=== PATIENT | male | born 1985 | race Caucasian/White ===

== ENCOUNTER 2024-04-21 09:02 | Outpatient (AMB) | payer MEDICAID, SELFPAY ==
[2024-04-21 09:35] VITALS: BP 121/76; PULSE 73; RESP 18; TEMP 36.4; O2SAT 95; BMI 25.9
--- NOTE | 2024-04-21 09:35 | PD.ORTHCLVIS ---
Vital signs 04/21/24 09:35 Height 1.78 m Height Method Stated Weight 81.873 kg Weight Measurement Method Standing Scale BMI 25.9 BP 121/76 Blood Pressure Source Automatic Cuff Blood Pressure Location Right Upper Arm Position Sitting Respiration 18 Pulse 73 Pulse Source Monitor Temp 97.5 F Temp Source Temporal Artery Scan Pulse Oximetry (%) 95 Oxygen Delivery Method Room Air Med/Allergies Allergies & Medications Allergies No Known Drug Allergies Allergy (Verified 04/21/24 09:36) Medication Reconciliation No Known Home Medications 04/21/24 [History Confirmed 04/21/24] Exam Exam Patient is in no acute distress and is cooperative with the examination today. Breathing is nonlabored. Patient has a normal mood and affect. The patient has a gait that is nonantalgic Bilateral extremities were evaluated and demonstrates sensation intact to light touch. Palpable pedal pulses are present. No significant edema is present. Bilateral hips were examined. The patient has no pain with log roll of the hips. Internal rotation to 30 degrees and external rotation to 30 degrees is painless. Negative FADIR. Left knee was examined today. The left knee is in reasonable alignment. Range of motion from 0-120 degrees. Knee is stable to varus and valgus as well as AP translation with <5mm. Patient has a negative McMurrays. There is no pain with patellofemoral compression and no crepitus noted. The knee is nontender to palpation. The right knee was also examined. The right knee is in neutral alignment. Range of motion from 0-120 degrees. Patient has a negative McMurrays. There is no pain with patellofemoral compression and no crepitus noted. The knee is nontender to palpation diffusely. The patient has a positive anterior drawer and Danae's Assessment and Plan Problem List (1) ACL tear: Status: Acute Plan: Patient is a 38-year-old male with a noncontact injury 2 months ago. The swelling has went down. Complex is still does not trust his knee and feels unstable. I suspect he does have an ACL tear. We will get an MRI. We will see him back after the MRI is done. Office Procedures GNS Level of Care Nursing/Assessment Patient Status: Initial/New Patient Nursing Assessment/Reassesment: Medication Reconciliation, Update PMH in EMR and Vital Signs Coordination of Care: Complex Care and Chronic Disease 1-5, Education Complex Pt/Fam, Consent,records obtained, informed consent, 1 Ins Authorization, Results/Orders obtained and Staff clarify orders New Patient Charge New Patient Point Assignment: 1109 New Patient Point Charge: LEAD TECHNICAL WRITER Level 3 ([id number]) MA Intake Visit Data Collection New Patient or Established: New Patient not seen in past 3 years at [facility] (considered New) Reason for Visit:: RIGHT KNEE PAIN Seen by Clinical Staff ONLY (RN/MA): No Verbal consent obtained for Telemed visit?: No Wire Setter Required: No PCP or OBGYN visit in last 3 months: Yes Hx Now: No Do You Feel Safe at Home: Yes Authorities Contacted: N/A Questionairres Past Medical History Past Medical History Have you ever been diagnosed with any of the following: Respiratory Problems Smoking: No Smoking Cessation Counseling: No Smoking Exposure: No Subjective Visit Visit for: new patient and knee Immunization / Flu Flu Vaccine in the Last 12 Months: No Flu Vaccine Exclusion Criteria: No Exclusion Criteria History of Present Illness Chief complaint: RIGHT KNEE PAIN Date of injury / onset of symptoms: 01/2024 Edgardo is a 38-year-old male with a noncontact injury 2 months ago. He was playing basketball and felt like his knee gave out. His knee did swell up initially. The swelling is 1 down and he reports that the knee feels unstable and he does have a limp still. He can walk on flat ground and has little difficulty walking. He has difficulty changing directions Personal History Red flag PMH: none Pain Pain level (0-10): 2 Pain duration: COMES AND GOES Pain location: inside (medial) and outside (lateral) Pain quality: aching and other (specify) (SORENESS) Pain timing: increases with activity Ambulatory data Ambulatory device: none Treatments Improvement with previous injections: No Improvement with PT: No Improvement with NSAIDS: no Review of Systems Review of Systems: All systems negative unless otherwise noted in HPI.
== END 2024-04-21 10:02 | disposition home or self-care (01) ==
PROVIDERS: Supervising Provider Orthopaedic Surgery Adult Reconstructive Orthopaedic Surgery; Visit Provider Orthopaedic Surgery Adult Reconstructive Orthopaedic Surgery
DX: S83.519D Sprain of anterior cruciate ligament of unspecified knee, subsequent encounter (principal); X58.XXXD Exposure to other specified factors, subsequent encounter
CPT/HCPCS: 99203; G0463

== ENCOUNTER → 2024-05-09 | Outpatient (CLI) | payer MEDICAID, SELFPAY ==
--- NOTE | 2024-05-09 07:30 | XR_ITS ---
Exam: MRI knee without contrast, right Date and time of exam: May 09, 2024 0720 hrs. Indications: Lateral right knee pain stiffness post basketball injury 3 months ago Technique: Multiple axial, coronal, and sagittal sections on the knee have been obtained. T2-Weighted sagittal, fat-suppressed images, TR 3,500, TE 62, T2 weighted coronal fat-saturated images, TR 3,500, TE 62 Proton density sagittal sections, TR 1800, TE 31. T-1 weighted coronal images, TR 524, TE 13.0 Findings: Medial meniscus anterior horn intact. Medial meniscus, body is intact. Posterior horn medial meniscus vertical tear outer one half posterior horn. Lateral meniscus anterior horn is intact Lateral meniscus, body is intact Posterior horn lateral meniscus is intact Anterior cruciate ligament moderate sprain Posterior cruciate ligament appears intact. Knee effusion is small. Quadriceps and patellar tendons appear intact. There is no evidence of tendinosis. Inflammatory change or fracture of Hoffa's fat pad is not seen. Medial patellar facet demonstrates no thinning. Lateral patellar facet cartilage demonstrates no thinning. Trochlear cartilage demonstrates no thinning. Marrow signal adequate. Medial collateral ligament appears intact. No meniscocapsular separation is seen. Illiotibial band and fibular collateral ligament are intact. Biceps femoris tendons appear intact. Medial femoral condylar articular cartilage demonstrates mild thinning. Lateral femoral condylar articular cartilage mild thinning Tibial plateau cartilage demonstrates mild thinning. Impression: Vertical tear posterior horn medial meniscus Moderate sprain anterior cruciate ligament
== END | disposition home or self-care (01) ==
LOC: SMRI 07:02
PROVIDERS: Referring Provider Orthopaedic Surgery Adult Reconstructive Orthopaedic Surgery; Visit Provider Orthopaedic Surgery Adult Reconstructive Orthopaedic Surgery
DX: S83.241A Other tear of medial meniscus, current injury, right knee, initial encounter (principal); S83.511A Sprain of anterior cruciate ligament of right knee, initial encounter; X58.XXXA Exposure to other specified factors, initial encounter
CPT/HCPCS: 73721

== ENCOUNTER 2024-05-12 14:04 | Outpatient (AMB) | payer MEDICAID, SELFPAY ==
--- NOTE | 2024-05-12 14:28 | ORTHONT_ITS ---
Vital signs 05/12/24 14:35 Height 1.78 m Height Method Stated Weight 82.185 kg Weight Measurement Method Standing Scale BMI 25.9 BP 131/87 H Blood Pressure Source Automatic Cuff Blood Pressure Location Left Upper Arm Position Sitting Respiration 18 Pulse 81 Pulse Source Monitor Temp 98.5 F Temp Source Temporal Artery Scan Pulse Oximetry (%) 98 Oxygen Delivery Method Room Air Med/Allergies Allergies & Medications Allergies No Known Drug Allergies Allergy (Verified 05/12/24 14:35) Medication Reconciliation meloxicam 7.5 mg tablet 7.5 mg PO QDAY #45 tabs 05/12/24 [Rx] Exam Exam Patient is in no acute distress and is cooperative with the examination today. Breathing is nonlabored. Patient has a normal mood and affect. The patient has a gait that is nonantalgic Bilateral extremities were evaluated and demonstrates sensation intact to light touch. Palpable pedal pulses are present. No significant edema is present. Bilateral hips were examined. The patient has no pain with log roll of the hips. Internal rotation to 30 degrees and external rotation to 30 degrees is painless. Negative FADIR. Left knee was examined today. The left knee is in reasonable alignment. Range of motion from 0-120 degrees. Knee is stable to varus and valgus as well as AP translation with <5mm. Patient has a negative McMurrays. There is no pain with patellofemoral compression and no crepitus noted. The knee is nontender to palpation. The right knee was also examined. The right knee is in neutral alignment. Range of motion from 0-120 degrees. Patient has a negative McMurrays. There is no pain with patellofemoral compression and no crepitus noted. The knee is nontender to palpation diffusely. The patient has a positive anterior drawer and Danae's Assessment and Plan Problem List (1) ACL tear: Status: Acute Plan: Patient is a 38-year-old male with a noncontact injury 2 months ago. The swelling has went down. He still has a limp and was found to have a posterior h orn of the medial meniscus tear. Interestingly his pain is actually anterior and laterally. We will thus start with conservative treatment. He does not have an ACL tear or any bone bruises on the MRI. We discussed that we could try operative treatment should nonoperative treatment fail. He already has a brace and we will start him on anti-inflammatories (2) Tear of meniscus of knee: Status: Acute Office Procedures GNS Level of Care Nursing/Assessment Patient Status: Established Patient Nursing Assessment/Reassesment: Medication Reconciliation, Update PMH in EMR and Vital Signs Coordination of Care: Complex Care and Chronic Disease 1-5, Education Complex Pt/Fam, Consent,records obtained, informed consent, Results/Orders obtained and Staff clarify orders Established Patient Charge Established Patient Point Assignment: 95 Established Patient Point Charge: EP Level 3 (80-115) MA Intake Visit Data Collection New Patient or Established: Established Patient (seen at [facility] within 3 years) Reason for Visit:: MRI RESULTS Seen by Clinical Staff ONLY (RN/MA): No Assistant Professor Of Business Required: No PCP or OBGYN visit in last 3 months: Yes Hx Now: No Do You Feel Safe at Home: Yes Authorities Contacted: N/A Questionairres Past Medical History Past Medical History Have you ever been diagnosed with any of the following: Respiratory Problems Smoking: No Smoking Cessation Counseling: No Smoking Exposure: No Subjective Visit Visit for: follow up visit and MRI Immunization / Flu Flu Vaccine in the Last 12 Months: No Flu Vaccine Exclusion Criteria: No Exclusion Criteria History of Present Illness Chief complaint: Right knee pain Date of injury / onset of symptoms: 01/2024 Edgardo is a 38-year-old male with a noncontact injury 2 months ago. He was playing basketball and felt like his knee gave out. His knee did swell up initially. The swelling is 1 down and he reports that the knee feels unstable and he does have a limp still. He can walk on flat ground and has little difficulty walking. He has difficulty changing directions. The pain is anteriorly and laterally Personal History Red flag PMH: none Pain Pain level (0-10): 2 Pain duration: ON AND OFF Pain location: inside (medial) Pain quality: aching and other (specify) (SORENESS) Pain timing: increases with activity Associated signs & symptoms: none Ambulatory data Ambulatory device: none Treatments Improvement with previous injections: No Improvement with PT: No Improvement with NSAIDS: no Review of Systems Review of Systems: All systems negative unless otherwise noted in HPI.
[2024-05-12 14:35] VITALS: BP 131/87; PULSE 81; RESP 18; TEMP 36.9; O2SAT 98; BMI 25.9
== END 2024-05-12 14:42 | disposition home or self-care (01) ==
PROVIDERS: Supervising Provider Orthopaedic Surgery Adult Reconstructive Orthopaedic Surgery; Visit Provider Orthopaedic Surgery Adult Reconstructive Orthopaedic Surgery
DX: S83.249D Other tear of medial meniscus, current injury, unspecified knee, subsequent encounter (principal); X58.XXXD Exposure to other specified factors, subsequent encounter
CPT/HCPCS: 99213; G0463

== ENCOUNTER 2024-06-18 15:00 | Outpatient (RCR) | payer MEDICAID, SELFPAY ==
--- NOTE | 2024-06-05 14:30 | PT.OIERPT ---
PT OP Initial Eval Patient Information Outpatient Physical Therapy Treatment Date: 06/05/24 Visit Reasons: right knee pain Medical Diagnosis: Right Knee Meniscus Tear Treatment Dx #1: Right Knee Pain Treatment Dx #2: Right Knee Mobility Deficits Start of Care: 06/05/24 Date of Onset: Jan 2024 Smoking Status Smoking Status: Never smoker Initial Assessment Subjective: Pt is a 38 y/o male reports of right knee pain (09/01) after basketball injury Jan 2024. Pt has popping and clicking with the knee with certain ADLs. Pt has limitation with standing, walking, chores, self care, work duties, squatting, kneeling, and recreational activities. Objective: Right Knee AROM: -10 deg to 130 deg Right Knee MMTs: grossly 4/5 Right Hip MMTs: grossly 3+/5 Active SLR: 70 deg Special Test (+) Makayla Palpation: TTP medial knee joint line Assessment: Pt demonstrate right knee mobility and strength deficits s/p injury leading to difficulty with ADLs. 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
--- NOTE | 2024-06-16 13:57 | PT.ODAYNRPT ---
PT Outpatient Daily Note OP Daily Note Outpatient Physical Therapy Treatment Date: 06/16/24 Visit Reasons: right knee pain Subjective: Pt's knee feels tight and still has pain. Objective: Please see flow chart for list of ther ex performed Assessment: improve gait post PT session with more knee extension in stance with less antalgic gait noted Plan: Continue with PT Length of Time (minutes) of Treatment: 30 Minutes Procedure Charges Therapeutic Exercise 30 minutes: Yes
--- NOTE | 2024-06-18 15:36 | PT.ODAYNRPT ---
PT Outpatient Daily Note OP Daily Note Outpatient Physical Therapy Treatment Date: 06/18/24 Visit Reasons: right knee pain Subjective: No soreness or complaints to report after last session. Objective: Please see flow sheet for ther ex list. Assessment: Added TG squat exercise, pt completed with minimal knee discomfort but able to complete assigned reps. Plan: Continue with pOC. Length of Time (minutes) of Treatment: 30 Minutes Procedure Charges Therapeutic Exercise 30 minutes: Yes
== END 2024-06-22 23:59 | disposition home or self-care (01) ==
LOC: CPTX 15:00
PROVIDERS: PCP Orthopaedic Surgery Adult Reconstructive Orthopaedic Surgery; Referring Provider Orthopaedic Surgery Adult Reconstructive Orthopaedic Surgery; Visit Provider Orthopaedic Surgery Adult Reconstructive Orthopaedic Surgery
DX: M25.561 Pain in right knee (principal); R26.2 Difficulty in walking, not elsewhere classified; S83.206D Unspecified tear of unspecified meniscus, current injury, right knee, subsequent encounter; X58.XXXD Exposure to other specified factors, subsequent encounter
CPT/HCPCS: 97110; 97162

== ENCOUNTER 2024-06-30 14:21 | Outpatient (AMB) | payer MEDICAID, SELFPAY ==
[2024-06-30 14:42] VITALS: BP 137/89; PULSE 75; RESP 19; TEMP 36.7; O2SAT 97; BMI 25.7
--- NOTE | 2024-06-30 14:42 | PD.ORTHCLVIS ---
Vital signs 06/30/24 14:42 Height 1.78 m Height Method Stated Weight 81.675 kg Weight Measurement Method Standing Scale BMI 25.7 BP 137/89 H Blood Pressure Source Automatic Cuff Blood Pressure Location Left Upper Arm Position Sitting Respiration 19 Pulse 75 Pulse Source Monitor Temp 98.1 F Temp Source Temporal Artery Scan Pulse Oximetry (%) 97 Oxygen Delivery Method Room Air Med/Allergies Allergies & Medications Allergies No Known Drug Allergies Allergy (Verified 06/30/24 14:43) Exam Exam Patient is in no acute distress and is cooperative with the examination today. Breathing is nonlabored. Patient has a normal mood and affect. The patient has a gait that is nonantalgic Bilateral extremities were evaluated and demonstrates sensation intact to light touch. Palpable pedal pulses are present. No significant edema is present. Bilateral hips were examined. The patient has no pain with log roll of the hips. Internal rotation to 30 degrees and external rotation to 30 degrees is painless. Negative FADIR. Left knee was examined today. The left knee is in reasonable alignment. Range of motion from 0-120 degrees. Knee is stable to varus and valgus as well as AP translation with <5mm. Patient has a negative McMurrays. There is no pain with patellofemoral compression and no crepitus noted. The knee is nontender to palpation. The right knee was also examined. The right knee is in neutral alignment. Range of motion from 0-120 degrees. Patient has a negative McMurrays. There is no pain with patellofemoral compression and no crepitus noted. The knee is nontender to palpation diffusely. The patient has a positive anterior drawer and Danae's Patient has an MRI that demonstrates a posterior horn medial meniscus tear Assessment and Plan Problem List (1) ACL tear: Status: Acute Plan: Patient is a 38-year-old male with a noncontact injury 4 months ago. The swelling has went down. We treated him nonoperatively and had him do physical therapy. The pain has improved quite a bit but it is nowhere near perfect at this point. I discussed with him that the MRI findings demonstrate a posterior horn medial meniscus tear and that his pain is actually only anteriorly. I discussed that given the location of the pain it is not concordant with the MRI findings and his exam does not seem like the meniscus is bothering him. I thus would recommend conservative treatment. I discussed with the patient that should he want a second opinion that I think this is completely reasonable. I recommend referral for second opinion with another orthopedic surgeon especially since I primarily specialize in hip and knee replacements and arthritis (2) Tear of meniscus of knee: Status: Acute Office Procedures GNS Level of Care Nursing/Assessment Patient Status: Established Patient Nursing Assessment/Reassesment: Medication Reconciliation, Update PMH in EMR and Vital Signs Coordination of Care: Complex Care/Chronic Disease 5 or more, Education Complex Pt/Fam, Consent,records obtained, informed consent, Results/Orders obtained and Staff clarify orders Established Patient Charge Established Patient Point Assignment: 105 Established Patient Point Charge: EP Level 3 (80-115) UT Intake Visit Data Collection New Patient or Established: Established Patient (seen at [facility] within 3 years) Reason for Visit:: FOLLOW UP RIGHT KNEE PAIN Do You Feel Safe at Home: Yes Questionairres Past Medical History Past Medical History Have you ever been diagnosed with any of the following: Respiratory Problems Smoking: No Smoking Cessation Counseling: No Smoking Exposure: No Subjective Visit Visit for: follow up visit and knee Immunization / Flu Flu Vaccine in the Last 12 Months: No Flu Vaccine Exclusion Criteria: No Exclusion Criteria History of Present Illness Chief complaint: FOLLOW UP RIGHT KNEE PAIN Date of injury / onset of symptoms: 01/2024 Edgardo is a 38-year-old male with a noncontact injury 2 months ago. He was playing basketball and felt like his knee gave out. His knee did swell up initially. The swelling is 1 down and he reports that the knee feels unstable and he does have a limp still. He can walk on flat ground and has little difficulty walking. He has difficulty changing directions. The pain is anteriorly and laterally Personal History Red flag PMH: none BMI Counceling provided: Yes Pain Pain level (0-10): 2 Pain duration: CONSTANT Pain location: inside (medial) Pain quality: aching and other (specify) (SORENESS) Pain timing: increases with activity Associated signs & symptoms: none Ambulatory data Ambulatory device: none Treatments Improvement with previous injections: No Improvement with PT: Yes Improvement with NSAIDS: no Review of Systems Review of Systems: All systems negative unless otherwise noted in HPI.
== END 2024-06-30 14:53 | disposition home or self-care (01) ==
LOC: HODSRG 14:21
PROVIDERS: Supervising Provider Orthopaedic Surgery Adult Reconstructive Orthopaedic Surgery; Visit Provider Orthopaedic Surgery Adult Reconstructive Orthopaedic Surgery
DX: S83.249D Other tear of medial meniscus, current injury, unspecified knee, subsequent encounter (principal); X58.XXXD Exposure to other specified factors, subsequent encounter
CPT/HCPCS: 99213; G0463

== ENCOUNTER 2024-07-22 09:00 | Outpatient (RCR) | payer MEDICAID, SELFPAY ==
--- NOTE | 2024-06-24 09:15 | PT.ODAYNRPT ---
PT Outpatient Daily Note OP Daily Note Outpatient Physical Therapy Treatment Date: 06/24/24 Visit Reasons: RIGHT KNEE PAIN Subjective: Pt reports no changes, continues to have tightness/stiffness of R knee. Objective: Please see flow sheet for ther ex list. Assessment: Added light strengthening interventions pt completed with some discomfort but able to complete assigned reps. Plan: Assess response to treatment. Length of Time (minutes) of Treatment: 30 Minutes Procedure Charges Therapeutic Exercise 30 minutes: Yes
--- NOTE | 2024-06-26 15:10 | PT.ODAYNRPT ---
PT Outpatient Daily Note OP Daily Note Outpatient Physical Therapy Treatment Date: 06/26/24 Visit Reasons: RIGHT KNEE PAIN Subjective: Pt's knee is better, however, feels sore in the hip after therapy session. Pt mentioned his Hamstrings continues to be tight Objective: Please see flow chart for list of ther ex performed Assessment: patient exhibit tight Hs leading to decrease terminal knee extension in gait which translate to a antalgic gait. Pt instructed to stretch Hs more as HEP at home to improve muscle length and increase knee extension ROM Plan: Continue with PT Length of Time (minutes) of Treatment: 30 Minutes Procedure Charges Therapeutic Exercise 30 minutes: Yes
--- NOTE | 2024-07-01 14:18 | PT.ODAYNRPT ---
PT Outpatient Daily Note OP Daily Note Outpatient Physical Therapy Treatment Date: 07/01/24 Visit Reasons: RIGHT KNEE PAIN Subjective: Pt reports he still continues to have pain and difficulty straightening out the R knee. Pt had a follow up with Dr. Mane, pt will be referred for a second opinion. Objective: Please see flow sheet for ther ex list. Assessment: Pt continues to ambulate with poor knee extension during heel strike, pt has pain with attempting to fully extend knee. Plan: Continue with POC. Length of Time (minutes) of Treatment: 30 Minutes Procedure Charges Therapeutic Exercise 30 minutes: Yes
--- NOTE | 2024-07-08 09:36 | PT.ODAYNRPT ---
PT Outpatient Daily Note OP Daily Note Outpatient Physical Therapy Treatment Date: 07/08/24 Visit Reasons: RIGHT KNEE PAIN Subjective: Pt's knee feels okay and still notice some ache in the knee with standing and walking. Pt seen Dr Mane and recommends for him to return back to PCP for sport ortho consult. Pt will like to finish authorized PT session since it's helping with overall knee mobility Objective: Please see flow chart for list of ther ex performed Assessment: progress patient's side step and monster walk to YTB with good tolerance. Pt still exhibit slight antalgic gait pre and post PT session due to pain Plan: Continue with PT Length of Time (minutes) of Treatment: 30 Minutes Procedure Charges Therapeutic Exercise 30 minutes: Yes
--- NOTE | 2024-07-16 14:43 | PT.ODAYNRPT ---
PT Outpatient Daily Note OP Daily Note Outpatient Physical Therapy Treatment Date: 07/16/24 Visit Reasons: RIGHT KNEE PAIN Subjective: Pt still has mild knee pain Objective: Please see flow chart for list of ther ex performed Assessment: checked hamstring length; still exhibit tightness. Improve Hs post stretching Plan: Continue with PT Length of Time (minutes) of Treatment: 30 Minutes Procedure Charges Therapeutic Exercise 30 minutes: Yes
--- NOTE | 2024-07-22 09:29 | PT.ODAYNRPT ---
PT Outpatient Daily Note OP Daily Note Outpatient Physical Therapy Treatment Date: 07/22/24 Visit Reasons: RIGHT KNEE PAIN Subjective: Pt's knee is better and notice more strength. Objective: Please see flow chart for list of ther ex performed Assessment: slight difficulty with balance on bosu ball due to imbalance but improved after a few mins. Plan: Continue with PT Length of Time (minutes) of Treatment: 30 Minutes Procedure Charges Therapeutic Exercise 30 minutes: Yes
== END 2024-07-22 23:59 | disposition home or self-care (01) ==
LOC: CPTX 09:00
PROVIDERS: PCP Orthopaedic Surgery Adult Reconstructive Orthopaedic Surgery; Referring Provider Orthopaedic Surgery Adult Reconstructive Orthopaedic Surgery; Visit Provider Orthopaedic Surgery Adult Reconstructive Orthopaedic Surgery
DX: M25.561 Pain in right knee (principal); R26.2 Difficulty in walking, not elsewhere classified; S83.206D Unspecified tear of unspecified meniscus, current injury, right knee, subsequent encounter; X58.XXXD Exposure to other specified factors, subsequent encounter
CPT/HCPCS: 97110

== ENCOUNTER 2024-07-29 08:30 | Outpatient (RCR) | payer MEDICAID, SELFPAY ==
--- NOTE | 2024-07-24 09:00 | PTNOTE_ITS ---
PT Outpatient Daily Note OP Daily Note Outpatient Physical Therapy Treatment Date: 07/24/24 Visit Reasons: RIGHT KNEE PAIN Subjective: Pt's knee pain is better but still has pain. Pt is okay with finishing up with last session since he's pending sports ortho consult. Objective: Please see flow chart for list of ther ex performed Assessment: tolerate exercises with minimal pain; difficulty with fwd lunge on the foam due to imbalance Plan: Continue with PT Length of Time (minutes) of Treatment: 30 Minutes Procedure Charges Therapeutic Exercise 30 minutes: Yes
--- NOTE | 2024-07-29 10:07 | PT.ODS1RPT ---
PT OP Progress/Discharge Note Date of Service: 07/29/24 Progress Note/DC Note Progress Note/Discharge Note: DC Note Patient Information Visit Reasons: RIGHT KNEE PAIN Medical Diagnosis: Right Knee Meniscus Tear Treatment Dx #1: Right Knee Pain Service Discharge Date: 07/29/24 Status Subjective: Pt's knee is a little better, however, continues to have pain leading to difficulty with ADLs, walking, work duties, and recreational activities. Pt will like to stop and is pending sports ortho consult. Objective: Right Knee AROM: all motions are WNL Right Knee MMTs: grossly 4/5 Right Hip MMTs: grossly 4-/5 Special Test (+) Makayla Assessment: Pt demonstrate functional right knee mobility and strength, however, no change in pain leading to difficulty with ADLs. Pt will no longer benefit from physical therapy due to minimal progress towards goals. Recommend patient to return back to MD for further consultation; thank you for your referrals. Plan: D/C home with HEP and follow up with MD Procedure Charges Therapeutic Exercise 30 minutes: Yes
== END 2024-08-22 23:59 | disposition home or self-care (01) ==
LOC: CPTX 08:30
PROVIDERS: PCP Orthopaedic Surgery Adult Reconstructive Orthopaedic Surgery; Referring Provider Orthopaedic Surgery Adult Reconstructive Orthopaedic Surgery; Visit Provider Orthopaedic Surgery Adult Reconstructive Orthopaedic Surgery
DX: M25.561 Pain in right knee (principal); R26.2 Difficulty in walking, not elsewhere classified; S83.206D Unspecified tear of unspecified meniscus, current injury, right knee, subsequent encounter; X58.XXXD Exposure to other specified factors, subsequent encounter
CPT/HCPCS: 97110